=== PATIENT | male | born 1980 | race Caucasian/White ===

== ENCOUNTER 2018-10-09 07:15 | Emergency (ER) | payer OTHER ==
[2018-10-09] MEDS ORDERED: IPRATROPIUM/ALBUTEROL SULFATE 3 ML AMPUL.NEB NEB ONE (07:25)
--- NOTE | 2018-10-09 07:40 | ED Physician Documentation ---
Upper Respiratory Symptoms - HISTORIAN Historian: patient - HPI Stated Complaint: cough Chief Complaint: Cough/ Upper Respiratory Onset: days ago (3) Duration: constant Context: denies: recent foreign travel Severity: mild Associated Symptoms: runny nose, sinus pain, sinus drainage, productive cough. denies: fever, chills, sore throat, bloody cough, shortness of breath Worsened by Deep Breath: No Further Comments: yes (He states he has not had any sick contacts he is aware of. He denies any fever that he is aware of although he does note chills. He denies any rash. he has not tried any OTC meds for the symptoms. He currently states he has "the worst sinus drainge" and feels "choked" on the phglem) - ROS CONST/EYES: denies: weakness, eye redness, eye itching MS/SKIN: denies: rash - PAST HX Lung Disease: none PE Risk Factors: none Surgeries/Procedures: none Immunizations: UTD Allergies/Adverse Reactions: Allergies Allergy/AdvReac Type Severity Reaction Status Date / Time No Known Allergies Allergy Unverified 10/09/18 07:25 Home Medications: Ambulatory Orders Medication Instructions Recorded NK 10/09/18 - SOCIAL HX Smoking History: cigarettes Alcohol Use: none Drug Use: none - FAMILY HX Family History: none - VITAL SIGNS Vital Signs: Vital Signs Temp Pulse Resp BP Pulse Ox 98.1 F 85 18 130/80 100 10/09/18 07:15 10/09/18 08:17 10/09/18 08:17 10/09/18 08:17 10/09/18 08:17 - REVIEWED ASSESSMENTS Nursing Assessment Reviewed: No Vitals Reviewed: No ED Results Lab/Radiology - Radiology Radiology Impressions: Examination: PA and lateral chest. History: Evaluate lung swann. Comparison exam: None provided. Findings: PA and lateral views of the chest demonstrates a normal cardiac and mediastinal silhouette. No focal infiltrate. No blunting of the costophrenic margins. Osseous structures are appropriate for age. Impression: No acute pulmonary process. Electronically signed on Oct 09, 2018 8:10:37 AM ACCOUNTING PROFESSOR by: Faheem Faustin - Orders Orders: ED Orders Category Date Time Status CHEST 2VIEW [RAD] Stat Exams 10/09/18 Completed Ipratropium/Albuterol Sulfate [Duoneb] Med 10/09/18 07:25 Discontinued 3 ml NEB NOW ONE Upper Respiratory Symptoms - EXAM General Appearance: no acute distress, alert, other (constantly blowing out his nose air. ) EENT: eyes nml inspection, nml ENT inspection Neck: normal inspection Respiratory: no resp. distress, wheezes (exp upper lobes ) Abdomen: non-tender CVS: reg rate & rhythm, heart sounds normal Skin: color nml, no rash, warm,dry Neuro/Psych: oriented x3 Discharge Clincal Impression: Bronchitis Referrals: Primary Doctor,No [Primary Care Provider] - 2 Days Comments: 1. Azithromycin (zpack) take as directed 2. Flonase use one spray in each nostril daily 3. Increase fluids 4. See PCP in 2-4 days if no improvement 5. Return to ER for any concerns Condition: Stable Disposition: 01 HOME, SELF-CARE Decision to Admit: NO Date of Decison to Admit: 10/09/18 Decision Time: 08:13
--- NOTE | 2018-10-09 08:12 | Diagnostic Imaging Report ---
BENJI POP [facility] [address] [facility] [address] [place], [place]. [address] Report Submission Date: Oct 09, 2018 8:10:37 AM SOFTWARE SUPPORT ENGINEER Patient Study Name: MELANIE BERKOWITZ Date: Oct 09, 2018 7:35:14 AM SOFTWARE SUPPORT ENGINEER Modality Type: DX Gender: M Description: CHEST : [birth year] Institution: [facility] Physician: BENJI POP Examination: PA and lateral chest. History: Evaluate lung swann. Comparison exam: None provided. Findings: PA and lateral views of the chest demonstrates a normal cardiac and mediastinal silhouette. No focal infiltrate. No blunting of the costophrenic margins. Osseous structures are appropriate for age. Impression: No acute pulmonary process. Electronically signed on Oct 09, 2018 8:10:37 AM SOFTWARE SUPPORT ENGINEER by: Faheem OLEA
[2018-10-09 08:18] VITALS: BP 130/80
== END 2018-10-09 08:17 | disposition home or self-care (01) ==
LOC: ED 07:15 → EDBD 07:15 → ED 08:17
DX: J40 Bronchitis, not specified as acute or chronic (principal); Z72.0 Tobacco use
CPT/HCPCS: 71046; 94640; 99282; 99283